=== PATIENT | female | born 1995 | race Caucasian/White ===

== ENCOUNTER 2023-01-27 18:56 | Emergency (ER) | payer OTHER, SELFPAY ==
[2023-01-27 19:30] VITALS: BP 94/49; PULSE 83; RESP 18; TEMP 36.4; O2SAT 99
--- NOTE | 2023-01-27 21:56 | ED.EAR ---
HPI - Ear Problem General Chief complaint: Ear <USMAN Da Silva Last Filed: 01/28/23 02:56> Stated complaint: ear infection <USMAN Da Silva Last Filed: 01/28/23 02:56> Time Seen by Provider: 01/27/23 21:12 <Eric Ashraf PA-C - Last Filed: 01/28/23 02:56> History of Present Illness HPI Narrative: This is a 27-year-old female presents to the ED with chief complaint of right-sided ear pain x3 days. She is reporting viral URI symptoms x1 week. The symptoms include cough, congestion, sinus pressure. Denies any productive cough. 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 She reports some dizziness that feels like she is underwater whenever she puts her head down and raise back up. Reports she is not currently dizzy and is strictly positional in nature. Denies fevers, chills, chest pain, shortness of breath, abdominal pain, nausea, vomiting, diarrhea. <USMAN Da Silva Last Filed: 01/28/23 02:56> Related Data Home medications: Home Medications Medication Instructions Recorded Confirmed levalbuterol tartrate 45 1 puff inhalation Q6H 10/07/19 10/25/19 mcg/actuation aerosol inhaler mometasone 100 mcg/actuation HFA 1 puff inhalation DAILY PRN Asthma 10/07/19 10/25/19 aerosol inhaler (Asmanex HFA) <USMAN Da Silva Last Filed: 01/28/23 02:56> Allergies/adverse reactions: Allergies Allergy/AdvReac Type Severity Reaction Status Date / Time No Known Allergies Allergy Unverified 12/08/17 14:39 <UMSAN Da Silva Last Filed: 01/28/23 02:56> Review of Systems Review of Systems: CONSTITUTIONAL: Denies fever, chills, or sweats. EYES: Denies visual changes, redness, or discharge. ENT: Endorses congestion, sore throat, otalgia. Denies rhinorrhea. CARDIOVASCULAR: Denies chest pain, palpitations, or edema. RESPIRATORY: Denies cough or dyspnea. GASTROINTESTINAL: Denies abdominal pain, nausea, vomiting, or diarrhea. GENITOURINARY: Denies dysuria or hematuria. SKIN: Denies rash or itching. MUSCULOSKELETAL: Denies back pain, joint pain, or myalgia. NEUROLOGIC: Endorses dizziness. Denies headache, numbness, or weakness. PSYCHIATRIC: Denies anxiety or depression. <Eric Ashraf PA-C - Last Filed: 01/28/23 02:56> [facility] Family History Family History: Family History (Updated 10/07/19 @ 14:39 by Lani Fregoso RN) Mother Diabetes mellitus <USMAN Da Silva Last Filed: 01/28/23 02:56> Social History Social History: Social History Smoking packs per day: 1 Smoking cigarettes per day: 20.0 Smoking status: Current every day smoker Tobacco type: cigarettes Second hand tobacco smoke exposure: Yes Substance use: unknown Gender identity (if verbalized by the patient): Female Spiritual care concerns: No <Eric Ashraf PA-C - Last Filed: 01/28/23 02:56> Exam Narrative: GENERAL: Well-appearing, well-nourished, and in no acute distress. HEAD: Normocephalic, atraumatic. EYES: PERRLA and EOMI. ENT: Nares clear, no rhinorrhea or epistaxis. Mucous membranes moist. Oropharynx without tonsillar hypertrophy exudate or other lesions. Mild posterior oropharynx erythema is present. Mild erythematous injection of the right tympanic membrane. Serous effusion present on the right. Left tympanic membrane completely intact. No tenderness to the sinuses. NECK: Supple. No adenopathy or masses. CHEST: No respiratory distress. Clear to auscultation. No wheezes rales or rhonchi HEART: Regular rate and rhythm. No murmur heard. Normal peripheral pulses. ABDOMEN: Soft, nontender, nondistended, normal active bowel sounds. EXTREMITIES: Normal range of motion. No edema. SKIN: Warm, dry, no rash. NEURO: Alert and oriented x3. No focal deficits. PSYCH: Normal mood and affect. <Eric Ashraf PA-C - Last Filed: 01/28/23 02:56> [facility] Physician Supervision This is a was performed b
[2023-01-27 22:42] LABS: Influenza A QL RT-PCR Negative (Negative); Influenza B QL RT-PCR Negative (Negative); RSV RNA, RT-PCR Negative (Negative); SARS-CoV-2 RNA PCR Negative
[2023-01-27 22:58] LABS: Strep Group A RT-PCR NOT DETECTED (Negative)
[2023-01-27 22:59] VITALS: BP 105/57; PULSE 68; RESP 12; O2SAT 98
--- NOTE | 2023-01-27 23:06 | PC.NURSE ---
Report given to Dax BARKLEY
== END 2023-01-28 00:01 | disposition home or self-care (01) ==
PROVIDERS: Emergency Provider Physician Assistant
DX: H66.91 Otitis media, unspecified, right ear (principal); Z20.822 Contact with and (suspected) exposure to COVID-19; F17.210 Nicotine dependence, cigarettes, uncomplicated
CPT/HCPCS: 87637; 87651; 99283

== ENCOUNTER 2023-09-02 21:18 | Emergency (ER) | payer OTHER, SELFPAY ==
--- NOTE | ~2023-09-02 | CT_ITS ---
Clinical Indication: Chest pain CT Scan of the Chest with Contrast: Technique: Contiguous sections were acquired throughout the chest after intravenous administration of 100 cc of Omnipaque 350. Dose reduction technique was used on this scan by utilizing automated expos ure control and iterative reconstruction technique. The dose-length product (DLP) was 200.27 mGy-cm. Findings: There is no evidence of any significant mediastinal, hilar or axillary lymphadenopathy. There is no f illing defect in the pulmonary arterial tree to suggest pulmonary embolus. There is no evidence of ao rtic dissection or aneurysm. There is no evidence of pleural or pericardial effusion. 3 mm right middle lobe pulmonary nodule noted (axial image 59). No other pulmonary abnormality seen. Images through the upper abdomen reveal no abnormalities. Impression: No acute posttraumatic abnormality seen. 3 mm right middle lobe pulmonary nodule. According to Fleischner Society criteria, for a low-risk pat ient, no further follow-up required. For a high-risk patient, consider 12 month follow-up CT. Reviewed, dictated and finalized at [facility]. Impression: No acute posttraumatic abnormality seen. 3 mm right middle lobe pulmonary nodule. According to Fleischner Society criter ia, for a low-risk patient, no further follow-up required. For a high-risk melvin ent, consider 12 month follow-up CT.
--- NOTE | ~2023-09-02 | XR_ITS ---
EXAMINATION: XR chest 2V DATE: 09/02/2023 21:47 INDICATION: Chest pain TECHNIQUE: PA and lateral views of the chest are obtained. COMPARISON: None available FINDINGS: The lungs are free of acute opacities. No pleural effusion or pneumothorax. The cardiomedia stinal silhouette is normal. The visualized bones and soft tissues are unremarkable. IMPRESSION: 1. No acute cardiopulmonary abnormality. Reviewed, dictated and finalized at location [facility].
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
[2023-09-02 21:24] VITALS: BP 139/88; PULSE 99; RESP 16; TEMP 37.1; O2SAT 100
[2023-09-02 22:10] LABS: Influenza A QL RT-PCR Negative (Negative); Influenza B QL RT-PCR Negative (Negative); RSV RNA, RT-PCR Negative (Negative); SARS-CoV-2 RNA PCR Positive (Negative)
[2023-09-03 00:16] VITALS: BP 118/92; PULSE 76; RESP 16; TEMP 36.8; O2SAT 98
[2023-09-03 02:54] VITALS: BP 122/61; PULSE 88; RESP 18; O2SAT 99
[2023-09-03 02:55] VITALS: BP 120/74; PULSE 84; RESP 16; O2SAT 100; O2SAT 95
--- NOTE | 2023-09-03 03:06 | ECG_ITS ---
Measurements Intervals [place] Rate: 73 P: 63 ID: [id number] QRS: 39 QRSD: 94 T: 41 QT: 391 QTc: 432 Interpretive Statements SINUS RHYTHM POSSIBLE RIGHT VENTRICULAR CONDUCTION DELAY [RSR (QR) IN V1/V2] BORDERLINE ECG NO PREVIOUS ECG AVAILABLE FOR COMPARISON Electronically Signed On 09-03-2023 10:32:21 CDT by Russell Mansfield M.D.
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
[2023-09-03 03:38] VITALS: BP 115/80; PULSE 63; RESP 20; O2SAT 97
[2023-09-03] MEDS: KETOROLAC 30 MG/ML VIAL (*BKC) IV PUSH (03:41)
[2023-09-03 03:48] LABS: Hematocrit 42.2 % (37.0-47.0); Hemoglobin 13.8 g/dL (12.0-15.0); Immature Granulocyte Percent A 0.2 % (0-0.5); Mean Corpuscular HGB Conc 32.7 g/dl (32-36); Mean Corpuscular Hemoglobin 31.4 pg (26-34); Mean Corpuscular Volume 95.9 fl (80-100); Mean Platelet Volume 9.2 fl (7.4-10.4); Platelet Count Result 320 k/mm3 (150-375); Red Cell Distribution Width 12.6 % (11.5-14.5); White Blood Count 10.6 K/mm3 (4.5-10.0)
[2023-09-03 03:49] LABS: Basophils Absolute Auto 0.1 K/mm3 (0.0-0.1); Basophils Percent Auto 0.6 % (0.2-1.2); Eosinophils Absolute Auto 0.2 K/mm3 (0-0.3); Eosinophils Percent Auto 1.5 % (0-4.4); Immature Granulocyte Absolute 0.02 K/mm3 (0.00-0.031); Lymphocytes Absolute Auto 3.09 K/mm3 (0.9-3.2); Lymphocytes Percent Auto 29.2 % (18.3-44.2); Monocytes Absolute Auto 0.9 K/mm3 (0.1-0.6); Monocytes Percent Auto 8.3 % (2.6-8.5); Neutrophils Absolute Auto 6.4 K/mm3 (1.3-6.7); Neutrophils Percent Auto 60.2 % (45.5-73.1)
[2023-09-03 04:00] LABS: Alanine Aminotransferase 25 U/L (6-35); Albumin Level 4.7 g/dL (3.5-5.1); Alkaline Phosphatase 57 U/L (38-126); Anion Gap 7 mmol/L (8-16); Aspartate Amino Transferase 45 U/L (14-36); Bilirubin,Total 0.7 mg/dL (0.2-1.3); Blood Urea Nitrogen 18 mg/dL (7-17); Calcium 9.3 mg/dL (8.4-10.2); Carbon Dioxide 27 mmol/L (22-30); Chloride 105 mmol/L (98-107); Estimated CRCL calculation 98 ml/min; Estimated Glomerular Filt Rate > 60; Glucose 102 mg/dL (65-110); Potassium 3.3 mmol/L (3.4-5.0); Sodium 139 mmol/L (137-145)
[2023-09-03 04:05] LABS: Prothrombin Time 13.9 Seconds (11.1-14.7)
[2023-09-03 04:12] LABS: Troponin I < 0.012 ng/mL (0.000-0.034)
[2023-09-03] MEDS: POTASSIUM CHLORIDE 20 MEQ PACKET (FOR LIQUID) PO (04:14)
[2023-09-03 04:27] LABS: Magnesium 2.3 mg/dL (1.6-2.3)
[2023-09-03 06:13] VITALS: BP 120/64; PULSE 78; RESP 16; O2SAT 100
[2023-09-03 06:55] VITALS: BP 103/87; PULSE 80; RESP 19; O2SAT 99
== END 2023-09-03 06:55 | disposition home or self-care (01) ==
PROVIDERS: Physician Assistant; Emergency Provider Emergency Medicine
DX: U07.1 COVID-19 (principal); E87.6 Hypokalemia; R91.1 Solitary pulmonary nodule; J45.909 Unspecified asthma, uncomplicated
CPT/HCPCS: 36415; 70450; 71046; 71275; 80053; 81025; 83735; 84484; 85025; 85610; 85730; 87637; 93005; 96374; 99284; A9270; J1885; Q9967